=== PATIENT | male | born 1960 ===

== ENCOUNTER 2017-12-16 09:36 | Inpatient (IN) ==
[2017-12-16] MEDS ORDERED: ceFAZolin 2 GM Premix Inj 2 GM/50 ML PIGGYBACK IV.SIG ONE ×2 (09:51→11:01)
[2017-12-16] MEDS ORDERED: Morphine Inj 4 MG/ML Vial ONE (09:52)
[2017-12-16 10:05] LABS: Baso # (Auto) 0.1 th/mm3 (0.0-0.2); Baso % (Auto) 0.6 % (0.0-2.0); Eos # (Auto) 0.2 th/mm3 (0.0-0.4); Eos % (Auto) 1.8 % (0.0-4.0); Hemoglobin 14.1 gm/dL (13.0-17.0); Lymph # (Auto) 2.1 th/mm3 (1.0-4.8); Lymph % (Auto) 23.1 % (9.0-44.0); Mean Corpuscular HGB Conc 33.7 % (32.0-36.0); Mean Corpuscular Hemoglobin 28.9 pg (27.0-34.0); Mean Platelet Volume 7.9 fL (7.0-11.0); Mono # (Auto) 0.8 th/mm3 (0.0-0.9); Mono % (Auto) 8.5 % (0.0-8.0); Platelet Count 239 th/mm3 (150-450); Red Blood Count 4.88 mil/mm3 (4.50-5.90); Red Cell Distribution Width 15.1 % (11.6-17.2); White Blood Count 9.1 th/mm3 (4.0-11.0)
--- NOTE | 2017-12-16 10:10 | XR ---
EXAM DATE: 12/16/2017 10:06 AM EDT AGE/SEX: 57 years / Male INDICATIONS: . Trauma alert. Chainsaw to the forearm. CLINICAL DATA: This is the patient's initial encounter. Patient reports that signs and symptoms have been present for 1 day and indicates a pain score of 0/10. MEDICAL/SURGICAL HISTORY: . Unobtainable. . Unobtainable. COMPARISON: No prior exams available for comparison. FINDINGS: The lungs are clear without infiltrate, nodule, or mass. There is no appreciable pleural effusion for technique. Heart and mediastinum are unremarkable. CONCLUSION: No acute cardiopulmonary disease. Electronically signed by: Arin Terrazas MD 12/16/2017 10:08 AM EDT
--- NOTE | 2017-12-16 10:16 | XR ---
EXAM DATE: 12/16/2017 10:08 AM EDT AGE/SEX: 57 years / Male INDICATIONS: Trauma alert. Chainsaw to the forearm. CLINICAL DATA: This is the patient's initial encounter. Patient reports that signs and symptoms have been present for 1 day and indicates a pain score of 10/10. MEDICAL/SURGICAL HISTORY: . Unobtainable. . Unobtainable. COMPARISON: No prior exams available for comparison. FINDINGS: Significant soft tissue injury is present at the level of the wrist volarly and at the bony structure s appear grossly intact. No definite radiopaque foreign bodies seen. CONCLUSION: Significant soft tissue injury. Electronically signed by: Arin Terrazas MD 12/16/2017 10:15 AM EDT
[2017-12-16 10:19] LABS: Activated Partial Thrombo Time 25.2 sec (24.3-30.1); INR 0.9 Ratio; Prothrombin Time 9.6 sec (9.8-11.6)
--- NOTE | 2017-12-16 10:58 | ED ---
HPI General Stated Complaint: Lac/PCES Time Seen by Provider: 12/16/17 09:59 History of Present Illness HPI narrative: This is a 57-year-old man with a history of hypertension, hyperlipidemia, cord disease, presents today Via [facility] with a laceration to his left forearm. According to the patient and the EMS crew, he was using a chainsaw near a fence when it hit the fence and kicked back and cut his left wrist. Report was that there was arterial bleeding. Patient had to have a tourniquet placed. They did a pressure dressing and transported him here. Patient was not called trauma alert in the field. When he arrived here, the pressure dressing was removed and despite the bandage, he still had arterial bleeding noted. He was upgraded to a level 2 trauma. The patient reports pain in his left forearm. There is no radiation up his arm. He is unable to give detailed history on the wound as he has had the tourniquet in place for over an hour. The patient states that his hand hurts and is also numb. Patient reports last tetanus shot was within 10 years. He reports allergies to Fioricet. Related Data Allergies Allergy/AdvReac Type Severity Reaction Status Date / Time No Allergy Information Allergy Unverified 12/16/17 09:42 Available Review of Systems Except as stated in HPI: all other systems reviewed are negative Constitutional Denies chills and Denies fever(s) Eyes Denies blurry vision and Denies eye pain ENT Denies dizziness and Denies nasal trauma Cardiovascular Denies chest pain and Denies diaphoresis Respiratory Denies cough and Denies dyspnea Gastrointestinal Denies abdominal pain, Denies nausea and Denies vomiting Musculoskeletal Reports back pain (Chronic back pain), Reports limited range of motion ( Secondary to pain and possible tendon injury), Reports numbness (Left hand secondary to tourniquet in place), Reports tingling (Left hand secondary to tourniquet in place) and Reports other (Left wrist laceration with arterial bleeding.) Integumentary/Breasts Reports other (Left volar wrist laceration) Neurologic Reports numbness (Left hand), Reports sensory deficit (Left hand), Reports tingling (Left hand) and Reports paresthesias (Left hand) Hematologic/Lymphatic Reports easy bleeding (Patient is taking Plavix) and Denies easy bruising Exam Narrative Exam Narrative: GENERAL: Well-developed well-nourished male resting comfortably on the stretcher when he arrived. SKIN: Focused skin assessment warm/dry. HEAD: Atraumatic. Normocephalic. EYES: No scleral icterus. No injection or drainage. ENT: No nasal bleeding or discharge. Mucous membranes pink and moist. NECK: Trachea midline. Supple. CARDIOVASCULAR: Regular rate and rhythm. No murmur appreciated. RESPIRATORY: No accessory muscle use. Clear to auscultation. Breath sounds equal bilaterally. GASTROINTESTINAL: Abdomen soft, non-tender, nondistended. Hepatic and splenic margins not palpable. MUSCULOSKELETAL: The patient's left arm has a tourniquet on his biceps area. Patient had a bulky pressure dressing on his left wrist. Upon removal, he had obvious arterial bleeding. I was unable to visualize nerves or tendons secondary to the bleeding. Pressure dressing was replaced. Patient had numbness and tingling to his distal fingertips which could be secondary to the tourniquet. This did not rule out the possibility of a neurovascular injury including tendon injury. NEUROLOGICAL: Awake and alert. No obvious cranial nerve deficits. Motor grossly within normal limits. Normal speech. PSYCHIATRIC: Appropriate mood and affect; insight and judgment normal. Medical Decision Making MDM Narrative Medical decision making narrative: 57-year-old male presents after chainsaw accident to the left wrist. Patient has arterial bleeding from the volar radial area of his wrist. There is likely tendon and nerve injury as well. Case was discussed with Dr. Stratton, on-call vascular surgeon, who agreed to take the patient to the operating room for exploration. The patient has been given 2 g of Ancef. A tetanus shot was up-to-date. He is also given 4 mg of morphine and 10 mg of Compazine. Differential Diagnosis Differential Diagnosis: Radial artery injury versus nerve injury versus tendon injury versus bony injury Lab Data Result diagrams: 12/16/17 09:46 Lab Results 12/16/17 12/16/17 12/16/17 Range/Units 09:46 09:46 09:46 WBC 9.1 (4.0-11.0) th/mm3 RBC 4.88 (4.50-5.90) mil/mm3 Hgb 14.1 (13.0-17.0) gm/dL POC Hgb (Calc) 13.6 (13.0-17.0) g/dL Hct 42.0 (39.0-51.0) % POC Hct 40.0 (39-51.0) % MCV 86.0 (80.0-100.0) fL MCH 28.9 (27.0-34.0) pg MCHC 33.7 (32.0-36.0) % RDW 15.1 (11.6-17.2) % Plt Count 239 (150-450) th/mm3 MPV 7.9 (7.0-11.0) fL Neut % (Auto) 66.0 (16.0-70.0) % Lymph % (Auto) 23.1 (9.0-44.0) % Fergus % (Auto) 8.5 H (0.0-8.0) % Eos % (Auto) 1.8 (0.0-4.0) % Baso % (Auto) 0.6 (0.0-2.0) % Neut # (Auto) 6.0 (1.8-7.7) th/mm3 Lymph # (Auto) 2.1 (1.0-4.8) th/mm3 Fergus # (Auto) 0.8 (0.0-0.9) th/mm3 Eos # (Auto) 0.2 (0.0-0.4) th/mm3 Baso # (Auto) 0.1 (0.0-0.2) th/mm3 WBC Differential . Differential Comment Auto diff final PT 9.6 L (9.8-11.6) sec INR 0.9 Ratio APTT 25.2 (24.3-30.1) sec POC Sodium 142 (137-144) mmol/L POC Potassium 4.1 (3.6-5.0) mmol/L POC Chloride 108 (102-111) mmol/L POC BUN 20 (5-21) mg/dL POC Creatinine 1.2 (0.6-1.3) mg/dL POC Glucose 110 (68-110) mg/dL Blood Type 12/16/17 Range/Units 09:46 WBC (4.0-11.0) th/mm3 RBC (4.50-5.90) mil/mm3 Hgb (13.0-17.0) gm/dL POC Hgb (Calc) (13.0-17.0) g/dL Hct (39.0-51.0) % POC Hct (39-51.0) % MCV (80.0-100.0) fL MCH (27.0-34.0) pg MCHC (32.0-36.0) % RDW (11.6-17.2) % Plt Count (150-450) th/mm3 MPV (7.0-11.0) fL Neut % (Auto) (16.0-70.0) % Lymph % (Auto) (9.0-44.0) % Fergus % (Auto) (0.0-8.0) % Eos % (Auto) (0.0-4.0) % Baso % (Auto) (0.0-2.0) % Neut # (Auto) (1.8-7.7) th/mm3 Lymph # (Auto) (1.0-4.8) th/mm3 Fergus # (Auto) (0.0-0.9) th/mm3 Eos # (Auto) (0.0-0.4) th/mm3 Baso # (Auto) (0.0-0.2) th/mm3 WBC Differential Differential Comment PT (9.8-11.6) sec INR Ratio APTT (24.3-30.1) sec POC Sodium (137-144) mmol/L POC Potassium (3.6-5.0) mmol/L POC Chloride (102-111) mmol/L POC BUN (5-21) mg/dL POC Creatinine (0.6-1.3) mg/dL POC Glucose (68-110) mg/dL Blood Type A Positive Imaging Data Radiologist's impression: Chest X-Ray 12/16/17 09:43 CONCLUSION: No acute cardiopulmonary disease. Forearm X-Ray 12/16/17 09:47 CONCLUSION: Significant soft tissue injury. Discharge Plan Discharge Disposition Patient Disposition: 30 Still Patient Discharge Details Diagnosis: Tendon laceration, Radial artery injury, Laceration of left wrist with complication Physicians Team ED Provider: Norman Duque Status ED Status: With Doctor
[2017-12-16] MEDS ORDERED: Sod Chloride 0.9% Inj 1,000 ML IV.SIG ONE (11:00)
[2017-12-16] MEDS ORDERED: Glycopyrrolate Inj 1 MG/5 ML Syringe IV.PUSH ONE (12:00)
[2017-12-16] MEDS ORDERED: Lidocaine PF 1% Inj 5 ML Syringe INFILTRATN ONE (12:00)
[2017-12-16] MEDS ORDERED: Neostigmine Inj 5 MG/5 ML Syringe IV.PUSH ONE (12:00)
[2017-12-16] MEDS ORDERED: Phenylephrine/NS 1000 MCG/10ML Syringe IV.PUSH ONE (12:00)
[2017-12-16] MEDS ORDERED: fentaNYL Citrate Inj 100 MCG/2 ML Ampul ONE (12:55)
[2017-12-16] MEDS ORDERED: *morphine SULFATE 10 MG/ML PERIprocedure ONLY ONE (13:06)
[2017-12-16] MEDS ORDERED: Morphine Sulfate Inj 2 MG/ML Vial IV.PUSH PRN (13:50)
[2017-12-16] MEDS ORDERED: Naloxone Inj 0.4 MG/ML Vial IV.PUSH PRN (14:40)
[2017-12-16] MEDS ORDERED: Promethazine 25 MG Supp RECTAL PRN (14:40)
[2017-12-16] MEDS ORDERED: Post-op Orders (for Pharmacy) OTHER ONE (14:40)
[2017-12-16] MEDS ORDERED: Bisacodyl 10 MG Supp RECTAL PRN (14:40)
[2017-12-16] MEDS ORDERED: Sod Chloride 0.9% Inj 1,000 ML IV.CONT SCH (14:45)
[2017-12-16] MEDS: Sod Chloride 0.9% Inj 1,000 ML IV.SIG SCH (16:01)
--- NOTE | 2017-12-16 18:54 | MP ---
cc: Graeme Stratton MD DATE OF OPERATION: 12/16/2017 DATE OF SURGERY: 12/16/2017 PREOPERATIVE DIAGNOSIS: Laceration of the left arm. POSTOPERATIVE DIAGNOSES: Laceration of the left arm and transection of the left radial artery, ischemia of the left hand, possible injury to the nerves. OPERATIVE PROCEDURE: Left radial artery resection and primary reconstruction. SURGEON: Graeme Stratton MD ANESTHESIA: General. ESTIMATED BLOOD LOSS: 50 mL. DESCRIPTION OF PROCEDURE: The patient was prepped and draped in usual fashion and then a tourniquet removed. The patient has exposed area in an oblique fashion where the chainsaw went through the skin and the radial artery was transected and lacerated. The patient is not heparinized; however, a Yasargil clamp is proximally and distally placed on the vessel to control the bleeding. The vessel was not exposed distally and proximally because it is partially retracted by making an additional incision into a T. Once this is on and about an inch of the vessel is exposed either way, partially opening the carpal tunnel distally, the vessel was advanced sufficiently and then the damaged middle part, which was lacerated, is resected with Osorio scissors. This allows for a nice primary end-to-end closure with 6-0 Prolene, which is placed in interrupted fashion. Once this is done, blood was reestablished. The patient has a bounding pulse in his radial artery and his hand. It readily warms up. On examination I do not see injury to either radial nerve or ulnar nerve in Guyon's canal appears to be intact and so does the carpal tunnel distally. The area irrigated with copious amounts of saline and then skin debrided and reapproximated with some 3-0 Prolene interrupted stitches. The patient was taken out of the operating room in stable condition with a warm hand. MD ANDERS Loera/BRITTNY , 06:37 PM , 06:53 PM [facility]
--- NOTE | 2017-12-16 18:56 | MH ---
cc: Graeme Stratton MD, Slobodan MD DATE OF ADMISSION: 12/16/2017 HISTORY OF PRESENT ILLNESS: This is a 57-year-old male with a history of hypertension, coronary artery disease who was found by [facility] with a laceration of his forearm. Apparently was cutting a fence with the chainsaw, hit the fence and kicked back and loss. The patient had bleeding from his left wrist. A tourniquet was placed and he was transferred to our institution. At the time of arrival, the patient has a tourniquet on and dressing on. I cannot see underneath, but I am told that the patient is bleeding. The patient is therefore admitted to go to the operating room. PAST MEDICAL HISTORY: Coronary artery disease, COPD and hypertension. PAST SURGICAL HISTORY: The patient had already surgery on his left ulnar artery in the past and I am not even sure if that is open at this point, but I will see that in the OR. PHYSICAL EXAMINATION: GENERAL: Reveals a 57 year-old male appearing old that his actual age. HEENT: Normocephalic. No trauma to the head. Pupils equal and reactive. Extraocular muscles intact. NECK: Bilateral carotid pulses. No bruits. CHEST: Bilateral breath sounds. HEART: Regular rhythm. ABDOMEN: Soft. Active bowel sounds. EXTREMITIES: Normal except on the left arm, there is a tourniquet on and there is a bloody dressing on it. Patient clearly has a severe injury with possible neurovascular implications, taken to the operating room immediately. MD ANDERS Loera/ , 06:35 PM , 06:54 PM
[2017-12-16] MEDS: Senna/Docusate Sodium 8.6/50 MG Tablet PO SCH (20:21)
[2017-12-17] MEDS: Sod Chloride 0.9% Inj 1,000 ML IV.SIG SCH (04:42)
[2017-12-17] MEDS ORDERED: Aspirin 325 MG Tablet PO SCH (09:00)
[2017-12-17] MEDS: Senna/Docusate Sodium 8.6/50 MG Tablet PO SCH (09:01)
[2017-12-17 09:02] LABS: Albumin 3.1 g/dL (3.4-5.0); Anion Gap 11 meq/L (5-15); Blood Urea Nitrogen 15 mg/dL (7-18); Calcium 8.5 mg/dL (8.5-10.1); Carbon Dioxide 21.5 meq/L (21.0-32.0); Chloride 109 meq/L (98-107); Glomerular Filtration Rate 77 mL/min (>89); Glucose,Random 97 mg/dL (74-106)
[2017-12-17 09:03] LABS: Alanine Aminotransferase 28 U/L (12-78); Aspartate Aminotransferase 15 U/L (15-37)
[2017-12-17 09:05] LABS: Alkaline Phosphatase 79 U/L (45-117); Total Protein 6.2 g/dL (6.4-8.2)
[2017-12-17 09:06] LABS: Sodium 141 meq/L (136-145)
[2017-12-17 09:30] LABS: Baso % (Auto) 0.3 % (0.0-2.0); Eos # (Auto) 0.1 th/mm3 (0.0-0.4); Eos % (Auto) 0.5 % (0.0-4.0); Hemoglobin 10.9 gm/dL (13.0-17.0); Lymph % (Auto) 15.8 % (9.0-44.0); Mean Corpuscular Hemoglobin 28.7 pg (27.0-34.0); Mean Corpuscular Volume 87.2 fL (80.0-100.0); Mean Platelet Volume 8.5 fL (7.0-11.0); Mono # (Auto) 0.9 th/mm3 (0.0-0.9); Mono % (Auto) 7.3 % (0.0-8.0); Neut # (Auto) 9.7 th/mm3 (1.8-7.7); Neut % (Auto) 76.1 % (16.0-70.0); Platelet Count 194 th/mm3 (150-450); Red Blood Count 3.78 mil/mm3 (4.50-5.90); Red Cell Distribution Width 15.2 % (11.6-17.2); White Blood Count 12.7 th/mm3 (4.0-11.0)
--- NOTE | 2017-12-19 09:45 | P.DS ---
Date of admission: 12/16/17 11:00 Primary care physician: No Primary Care Physician Anticipated date of discharge: 12/17/17 Brief History from admission: Chain saw injury DS: Diagnosis - Discharge Diagnosis (1) Tendon laceration Status: Acute (2) Radial artery injury Status: Acute (3) Laceration of left wrist with complication Status: Acute DS: Medications - Discharge Medications Prescriptions: ibuprofen [Advil] 400 mg PO Q4H PRN 3 Days #18 tab PRN Reason: Pain DS: Summary Hospital Course: [place]: This is a 57-year-old male who sustained a chainsaw injury to his left forearm. He was cutting the fence, and the chainsaw kicked back and cut his left arm. There is arterial bleeding. A tourniquet was placed for over an hour. Patient states his hand hurts and is numb. INJURIES: Left tendon laceration Left radial artery injury Laceration left wrist No fracture Procedures: 12/16: Left radial artery resection and primary reconstruction Consults: Case management. The patient is now tolerating a po diet. Eating and drinking well. Pain is being managed well with PO pain medications, and patient may continue with home narcotic prescription, and supplement with OTC Tylenol and/or ibuprofen. [The [employer] prescription drug monitoring program database has been queried. This patient has several recent narcotics/oxycodone prescriptions on file at several pharmacies. Therefore, did not provide a narcotic prescription. Patient may follow up with his pain management physician for continued care and treatment] (NO driving while taking narcotic pain medication enforced to patient.) We have recommended to patient to continue with stool softeners while taking narcotic pain medications to prevent constipation. Pt has been participating in PT and OT while admitted at [facility] and has been ambulating with their assistance and independently. Patient is provided a referral for PT/OT on an outpatient basis. All follow up appointments have been provided and discussed with the patient. It is recommended that the patient keeps all his follow up appointments for continued recovery. Patient's condition and plan of care discussed with collaborating trauma surgeon. He is agreeable to plan for discharge today. Therefore, the patient is stable to be safely discharged home from a trauma surgery standpoint. Thank you for allowing us to participate in his care. We wish Jayant the best in his recovery. Left tendon laceration Left radial artery injury Laceration left wrist No fracture 12/16: Left radial artery resection and primary reconstruction Supportive care Pain management Daily dressing changes: Wash gently with soap and water. Pat dry. Cover with 4 x 4 dressing and wrapped with Jamal PT and OT ordered [facility] out of bed Aspirin 325 mg Follow-up with trauma clinic outpatient - Time Spent with Patient Total time spent providing and/or coordinating discharge services: - Quality: VTE Deep Vein Thrombosis/Pulmonary Embolism Present on Admission: No Results Procedures completed during hospitalization: . - Impressions ITS Impressions Chest X-Ray 12/16/17 09:43 CONCLUSION: No acute cardiopulmonary disease. Forearm X-Ray 12/16/17 09:47 CONCLUSION: Significant soft tissue injury. Discharge Plan - Discharge Disposition Patient Disposition: 01 Discharge Home - Discharge Condition Condition: Stable - Discharge Order Discharge Orders: Discharge Order (Routine); Ordered 12/17/17 Ordered By: Bina Vences - Discharge Details Anticipated Discharge Date: 12/17/17 - Physicians Team Primary Care Provider: Primary Care Vitaliy,Nataliya Attending Provider: Graeme Stratton Other Providers: Keven Landeros MD ; Wilner Laguerre MD ; [facility] [employer] [facility] ; Akil Boston MD ; Bina Vences ARNP ; Zackery Calvert MD ; Susan Palma MD ; Graeme Stratton MD ; Alma Prieto ARNP
== END 2017-12-17 15:39 | disposition home or self-care (01) ==
LOC: NEPI 09:36 → NEDA 11:00 → N04 14:32 → N05 18:44
PROVIDERS: ADMIT Surgery; ATTEND Surgery
DX: F17.210 Nicotine dependence, cigarettes, uncomplicated; I25.10 Atherosclerotic heart disease of native coronary artery without angina pectoris; J44.9 Chronic obstructive pulmonary disease, unspecified; I10 Essential (primary) hypertension; W31.2XXA Contact with powered woodworking and forming machines, initial encounter; S55.112A Laceration of radial artery at forearm level, left arm, initial encounter